=== PATIENT | female | born 1965 | race Caucasian/White ===

== ENCOUNTER 2016-04-05 21:03 | Emergency (ER) | payer BC ==
[2016-04-05 21:13] VITALS: TEMP 97.8; BMI 35.5
--- NOTE | 2016-04-05 21:32 | EDPRACDOC ---
- General Information Chief Complaint: Chest Pain Stated Complaint: SHOB CP ACHING PRESSURE Time Seen by Provider: 04/05/16 21:22 Information Source: Patient Mode of Arrival: Car Home Medications: Home Medications Alprazolam [Xanax] 0.25 mg PO DAILY PRN 04/05/16 Atorvastatin Calcium [Lipitor] 20 mg PO QHS 04/05/16 Cholecalciferol (Vitamin D3) [Vitamin D3] 5,000 unit PO DAILY 04/05/16 Escitalopram Oxalate [Lexapro] 10 mg PO DAILY 04/05/16 Medroxyprogesterone Acet [Depo-Provera] 150 mg IM [id number] 04/05/16 Allergies/Adverse Reactions: Allergies Allergy/AdvReac Type Severity Reaction Status Date / Time No Known Allergies Allergy Unverified 04/05/16 21:55 - History of Present Illness Onset: 45 mins [employer] HPI: C/o constant sob x 1 week with CP starting 1 hr ago. CP does not make sob worse. SOB is worse with exertion. Denies fever, cough, sore throat, N/V/D, chnages in urine or BM. Med hx = HDL. No fam hx of heart dz, - smoker. Chest Pain Location: Reports: Substernal Pain Radiation: Reports: None Symptoms Occur: Reports: Suddenly Cardiac Risk Factors: Reports: Hyperlipidemia Cardiac History of: Reports: None Medications within 24 Hours: Reports: None Prehospital Care: Reports: None Pain Came On: Reports: Suddenly Pain Status: Present Now Pain Description: Reports: Aching Pain Severity: Mild Pain Worsens With: Reports: Exertion, Movement, Other (stress) Pain Improves With: Reports: Rest Associated Signs and Symptoms: Reports: SOB ED Past Medical History - History Reviewed Yes Nurses notes reviewed and agree except as marked - Patient Medical History Cardiac History: Reports: Hypercholesterolemia GI/ History: Reports: Gastroesophageal Reflux Psychological History: Reports: Anxiety. Denies: Depression Surgical History: Denies: Hysterectomy - Social Medical History Smoking Status: Never smoker EDM Review of Systems - Review of Systems ROS Negative Except as Marked: Yes All systems reviewed and were negative except as marked Respiratory: Shortness of Breath Cardiovascular: Chest Pain - Physical Exam Constitutional: No apparent distress, Alert Oriented to: Time, Person, Place Last recorded Vital Signs: Last Vital Signs Temp 97.8 F 04/05/16 21:06 Pulse 90 04/05/16 21:24 Resp 22 04/05/16 21:24 BP 165/88 04/05/16 21:24 Pulse Ox 96 04/05/16 21:24 Oxygen Pulse Oxygen Saturation 96 O2 Device Room Air Oxygen Flow Rate Fraction of Inspired Oxygen ( FIO2) - HEENT Head: Normal Eye Exam: negative: Conjunctival Injection, Scleral Icterus Oropharynx: negative: Drooling TMJ: Normal Nose: No Symptoms Reported Neck: Normal - Respiratory/Cardiovascular Respiratory: Normal - CTA Cardiovascular: Normal - GI Auscultation: Normal Palpation: Normal Tenderness: Non tender - Musculoskeletal Back: Normal Extremities: Normal - Integumentary Skin: Normal - Neurologic Mood Description: Normal Thought: Coherent Perception: Normal ED Chest Pain Exam - Respiratory/Cardiovascular Respiratory: Normal - CTA Cardiovascular/Chest: Normal Radial Pulse: Normal Pedal Pulse: Normal Edema: negative: 1+, 2+, 3+, 4+, 5, 6 Chest Palpation: Normal - Action Patient received Aspirin within last 24 hours?: No ASA given in the ED: No - Results 04/05/16 21:29 04/05/16 21:29 - EKG EKG #1 Rhythm: NSR ST: Normal - Diagnostic Imaging Chest Image interpreted by: Radiologist EXAM: CHEST 2 VIEW COMPARISON: None. FINDINGS: The heart size and mediastinal contours are within normal limits. Both lungs are clear. The visualized skeletal structures are unremarkable. IMPRESSION: No active cardiopulmonary disease. Electronically Signed By: Arnold Salazar M.D. On: 04/05/2016 21:43 Decision Time to Discharge: 22:19 - Departure Disposition: Home Condition: Stable Final Diagnosis: Atypical chest pain Instructions: Chest Pain (ED), Chest Wall Pain Education/Counseling Given To: Patient Education/Counseling Given Regarding: Diagnosis, Treatment, Prognosis, Follow Up Referrals: Nneka Morales NP [Primary Care Provider] - One Week Additional Instructions: Follow up with primary care. Return to ED for any new or worsening symptoms.
[2016-04-05 21:35] LABS: AUTOMATED BASOPHIL 0.9 % (0-2); AUTOMATED EOSINOPHIL 1.6 % (0-5); AUTOMATED LYMPH 26.4 % (17-44); AUTOMATED MONOCYTE 4.5 % (3-10); AUTOMATED NEUTROPHIL 66.6 % (45-76); MPV 9.1 fL (7.4-10.4)
--- NOTE | 2016-04-05 21:45 | DIRPT ---
CLINICAL DATA: Constant shortness of breath for 1 week. Substernal chest pain starting in our ago. Nonsmoker. EXAM: CHEST 2 VIEW COMPARISON: None. FINDINGS: The heart size and mediastinal contours are within normal limits. Both lungs are clear. The visualized skeletal structures are unremarkable. IMPRESSION: No active cardiopulmonary disease. Electronically Signed By: Arnold Salazar M.D. On: 04/05/2016 21:43
[2016-04-05 21:46] LABS: BLOOD UREA NITROGEN 12 MG/DL (7-17); CALCIUM 8.9 MG/DL (8.4-10.2); CALCULATED OSMOLALITY 274 MOs/Kg (270-290); CHLORIDE 108 mEq/L (98-107); GLUCOSE 124 MG/DL (70-99); SODIUM LEVEL 142 mEq/L (137-146); TOTAL PROTEIN 7.8 G/DL (6.3-8.2)
[2016-04-05 22:03] LABS: PARTIAL THROMB. TIME 24.3 SEC (22-35)
[2016-04-05 22:09] VITALS: PULSE 76
[2016-04-05 22:42] VITALS: BP 115/76
== END 2016-04-05 22:42 | disposition home or self-care (01) ==
LOC: ED 21:03
DX: R07.89 Other chest pain (principal); R06.02 Shortness of breath; K21.9 Gastro-esophageal reflux disease without esophagitis; Z79.899 Other long term (current) drug therapy
CPT/HCPCS: 36415; 71020; 80053; 84484; 85025; 85610; 85730; 93005; 99284